=== PATIENT | female | born 1970 | race Caucasian/White ===

== ENCOUNTER 2022-02-01 01:35 | Day surgery (SDC) | payer BC, SELFPAY ==
[2021-12-28 13:04] VITALS: BMI 21.9
--- NOTE | 2022-01-15 13:45 | PC.NURSE ---
1345- Pt was rescheduled from 01-11-22 to 02-01-22. PAT call done. Pt states no changes since the last PAT call done on 12-28-21. Pt has no questions at this time. Discussed arrival time and procedure time.
[2022-02-01 10:01] VITALS: BP 163/97; PULSE 84; RESP 18; TEMP 36.4; O2SAT 98
[2022-02-01] MEDS: LACTATED RINGERS 1,000 ML 150 ML IV CONT (10:08)
--- NOTE | 2022-02-01 10:43 | WPDANESEPPF ---
Anes - Initial Pre Proc Eval Procedure: Operation Date: 02/01/22 10:45 Proposed Procedures p Colonoscopy - Jc Corley MD Date/Time: 02/01/22 10:43 Surgeon: Jc Corley MD Pre Op Diagnosis: IBS Patient Data Age: 51 Gender: F Height: 1.57 m Weight: 68.4 kg Last Vital Signs Temp 36.4 C 02/01/22 10:01 Pulse 84 02/01/22 10:01 Resp 18 02/01/22 10:01 BP 163/97 H 02/01/22 10:01 Pulse Ox 98 02/01/22 10:01 Allergies Allergy/AdvReac Type Severity Reaction Status Date / Time No Known Allergies Allergy Verified 02/01/22 09:59 Home Medications Medication Instructions Recorded Confirmed Type ergocalciferol (vitamin D2) 1,250 mcg PO WEEKLY 12/28/21 02/01/22 History [Vitamin D2] estradiol 1 patch TRANSDERMAL 2XW 12/28/21 02/01/22 History furosemide 20 mg PO WEEKLY 12/28/21 02/01/22 History lorazepam 2 mg PO BID PRN 12/28/21 02/01/22 History medroxyprogesterone 2.5 mg PO DAILY 12/28/21 02/01/22 History nebivolol [Bystolic] 10 mg PO DAILY 12/28/21 02/01/22 History rosuvastatin 20 mg PO DAILY 12/28/21 02/01/22 History Patient hx anesthesia problems: none Family hx anesthesia problems: none Results Review: All pre-operative results and documents have been reviewed as part of the pre-operative evaluation. FOR[facility]LY [facility], [facility] Past Medical History Medical History Anxiety Hyperlipidemia Hypertension Social History Social History Smoking status: Never smoker Alcohol intake: never Substance use: never Substance use type: does not use Living arrangements: with family Spiritual care concerns: No Anes - Eval Final PreProcedure Day of Procedure 02/01/22 10:43 Patient weight: overweight Heart: regular rate and rhythm Lungs: clear to auscultation Airway: Mallampati scale class II Neurological: alert and oriented Last oral intake: >/= 8 hours ASA classification: III Emergent: no Anesthetic plan: proceed Anesthesia type and monitoring: general GIVS and standard monitoring Results Review: All pre-operative results and documents have been reviewed as part of the pre-operative evaluation. Informed Consent: The patient's anesthetic plan and its attendant risks and benefits were discussed with the patient/family/POA. Questions were solicited and answers provided to the satisfaction of the patient/family/POA.
--- NOTE | 2022-02-01 10:45 | PM.HPGS ---
History of Present Illness History of Present Illness Consent: Risks, benefits, and alternatives have been discussed and questions answered. Patient agrees to proceed with procedure. Chief complaint: screening Narrative: Kallie Rivera is a 51 year old female referred for colon cancer screening Review of Systems Review of Systems: All systems reviewed & are unremarkable except as noted in HPI and below PMFSH Past Medical History Medical History Anxiety Hyperlipidemia Hypertension Social History Social History Smoking status: Never smoker Alcohol intake: never Substance use: never Substance use type: does not use Living arrangements: with family Spiritual care concerns: No Meds Home Medications and Allergies Home Medications Medication Instructions Recorded Confirmed Type ergocalciferol (vitamin D2) 1,250 mcg PO WEEKLY 12/28/21 02/01/22 History [Vitamin D2] estradiol 1 patch TRANSDERMAL 2XW 12/28/21 02/01/22 History furosemide 20 mg PO WEEKLY 12/28/21 02/01/22 History lorazepam 2 mg PO BID PRN 12/28/21 02/01/22 History medroxyprogesterone 2.5 mg PO DAILY 12/28/21 02/01/22 History nebivolol [Bystolic] 10 mg PO DAILY 12/28/21 02/01/22 History rosuvastatin 20 mg PO DAILY 12/28/21 02/01/22 History Allergies Allergy/AdvReac Type Severity Reaction Status Date / Time No Known Allergies Allergy Verified 02/01/22 09:59 Vital Signs Vital Signs - 24 hr 02/01/22 10:01 Temperature 36.4 C Pulse Rate 84 Respiratory Rate 18 Blood Pressure 163/97 H Pulse Oximetry 98 Exam Const: General: alert Orientation/consciousness: patient oriented x3 Resp: Auscultation: clear to auscultation bilaterally Cardio: Rhythm: regular rhythm GI: GI Palp: Yes Soft to palpation and No Tenderness to palpation present (GI) Neuro: General: patient oriented x3 Assessment and Plan Assessment and plan (1) Colon cancer screening: Code(s): Z12.11 - Encounter for screening for malignant neoplasm of colon Status: Acute Assessment and Plan: Colonoscopy with possible biopsy or polypectomy or cautery or injection of substances.
[2022-02-01 11:11] VITALS: BP 105/74; PULSE 61; RESP 25; O2SAT 97
[2022-02-01 11:21] VITALS: BP 119/76; PULSE 57; RESP 15; O2SAT 100
[2022-02-01 11:31] VITALS: BP 128/84; PULSE 51; RESP 30; O2SAT 100
== END 2022-02-01 11:37 | disposition home or self-care (01) ==
PROVIDERS: PCP Internal Medicine; Visit Provider Internal Medicine Gastroenterology
PROC: 0DJD8ZZ Inspection of Lower Intestinal Tract, Via Natural or Artificial Opening Endoscopic (ICD-10-PCS; CPT 45378; principal; 2022-02-01 10:45)
DX: Z12.11 Encounter for screening for malignant neoplasm of colon (principal); K63.5 Polyp of colon; E78.5 Hyperlipidemia, unspecified; I10 Essential (primary) hypertension
CPT/HCPCS: 45380; 88305; J2704; J7120